=== PATIENT | male | born 1955 | race Caucasian/White ===

== ENCOUNTER 2022-03-14 08:48 | Emergency (ER) | payer OTHER ==
[~2022-03-14] VITALS: Ht 182.9 cm; Wt 86.0 kg
[2022-03-14 08:50] VITALS: BP 164/105
[2022-03-14] MEDS ORDERED: LORAZEPAM 2MG/ML CPJ IM STA (09:14)
[2022-03-14] MEDS ORDERED: OLANZAPINE 10 MG/VIAL IM ONE (09:15)
[2022-03-14 09:41] LABS: BASOPHILS % 0.3 % (0.0-2.0); EOSINOPHILS % 1.1 % (0.0-5.0); HEMATOCRIT. 37.9 % (42.0-52.0); HEMOGLOBIN. 12.8 g/dL (14.0-18.0); LYMPHOCYTES % 49.1 % (20.0-50.0); MEAN CORPUSCULAR HEMOGLOBIN 29.9 pg (28.0-32.0); MEAN CORPUSCULAR VOLUME 88.5 fL (80.0-94.0); MEAN PLATELET VOLUME 8.2 fl (7.4-10.4); MONOCYTES % 9.4 % (2.0-8.0); NEUTROPHILS % 40.1 % (40.0-76.0); PLATELET 216 x1000/uL (130-400); RED BLOOD CELL COUNT 4.28 mill/uL (4.7-6.1); RED CELL DISTRIBUTION WIDTH 14.9 % (11.6-14.6)
[2022-03-14 09:52] LABS: CHLORIDE 107 mEq/L (98-107)
[2022-03-14 10:00] LABS: ETHANOL BLOOD < 10 mg/dL
== END 2022-03-14 11:15 ==
LOC: ER 08:48
DX: R45.851 Suicidal ideations (principal)
CPT/HCPCS: 36415; 80053; 80307; 80320; 80329; 85025; 96372; 99284; J2060; J3490; G0480